=== PATIENT | female | born 1995 | race Caucasian/White ===

== ENCOUNTER 2020-07-30 11:58 | Emergency (ER) | payer SELFPAY ==
[2020-07-30] MEDS ORDERED: CYCLOBENZAPRINE HCL 10 MG TABLET PO ONE (12:40)
[2020-07-30] MEDS ORDERED: KETOROLAC TROMETHAMINE 60 MG/2 ML SDV IM ONE (12:40)
--- NOTE | 2020-07-30 13:21 | RADIOLOGY REPORT (SQ) ---
EXAM DESCRIPTION: SHOULDER RIGHT 2 OR MORE VIEWS IMAGES COMPLETED DATE/TIME: 07/30/2020 1:02 pm REASON FOR STUDY: pain COMPARISON: None. NUMBER OF VIEWS: Three views. TECHNIQUE: Internal rotation, external rotation, and Y view images acquired of the right shoulder. LIMITATIONS: None. FINDINGS: MINERALIZATION: Normal. BONES: No acute fracture. No worrisome bone lesions. No significant osteophytes. GLENOHUMERAL JOINT: No significant findings. ACROMIOCLAVICULAR JOINT: No large osteophytes. SOFT TISSUES: No calcifications. VISUALIZED RIBS, SPINE, AND LUNG: No other significant finding. OTHER: No other significant finding. IMPRESSION: No significant findings. TECHNICAL DOCUMENTATION: JOB ID: [id number] [place]-[id number] 2010 [employer]- All Rights Reserved Reading location - IP/workstation name: [email or web address]
--- NOTE | 2020-07-30 13:44 | ER Document Report ---
HPI - HPI Patient complains to provider of: right shoulder pain upper back pain Time Seen by Provider: 07/30/20 12:33 Pain Level: 5 Context: 24-year-old female with no previous medical problems presents to the emergency room complaining of right upper posterior shoulder pain for the past 2 days. She denies any trauma or injury. States she works at [employer] doing moderate amount of heavy lifting. Has been using an [id number] generic extra strength pain reliever without relief. Last dose around 9 AM. Also complaining of a sore throat that started yesterday. No fevers. Able to tolerate p.o. food and fluids without difficulty. No recent travel. No COVID-19 exposure. She denies any chance of . Associated Symptoms: None Exacerbated by: Movement Relieved by: Remaining still Similar symptoms previously: No Recently seen / treated by doctor: No - ROS Systems Reviewed and Negative: Yes All other systems reviewed and negative - CONSTITUTIONAL Constitutional: DENIES: Fever - EENT EENT: REPORTS: Sore Throat. DENIES: Ear Pain, Congestion - NEURO Neurology: DENIES: Weakness - CARDIOVASCULAR Cardiovascular: DENIES: Chest pain - RESPIRATORY Respiratory: DENIES: Trouble Breathing, Coughing - REPRODUCTIVE Reproductive: DENIES: : - MUSCULOSKELETAL Musculoskeletal: REPORTS: Extremity pain, Back Pain - DERM Skin Color: Normal Skin Problems: None Past Medical History - General Information source: Patient - Social History Smoking Status: Never Smoker Frequency of alcohol use: Occasional Drug Abuse: None Family History: Reviewed & Not Pertinent Psychiatric Medical History: Reports: Hx Attention Deficit Hyperactivity Disorder Vertical Provider Document - CONSTITUTIONAL Agree With Documented VS: Yes Exam Limitations: No Limitations General Appearance: Mild Distress - INFECTION CONTROL TRAVEL OUTSIDE OF THE [place] IN LAST 30 DAYS: No - HEENT HEENT: Atraumatic, Normal ENT Exam, Normocephalic. negative: Pharyngeal Exudate, Pharyngeal Tenderness, Pharyngeal Erythema, Tympanic Membrane Red, Tympanic Membrane Bulging - NECK Neck: Normal Inspection, Supple. negative: Lymphadenopathy-Left, Lymphadenopathy-Right - RESPIRATORY Respiratory: Breath Sounds Normal, No Respiratory Distress, Chest Non-Tender - CARDIOVASCULAR Cardiovascular: Regular Rate, Regular Rhythm, No Murmur - BACK Back: Abnormal Inspection - There is tenderness on palpation to the posterior right lower scapula with some muscle spasms palpated in the thoracic region. There is no obvious deformity noted. Nontender to palpation over the thoracic spine. - MUSCULOSKELETAL/EXTREMETIES Musculoskeletal/Extremeties: Tender - Tender on palpation to the posterior right scapula. No obvious deformity noted. Full range of motion with abduction and adduction. - NEURO Level of Consciousness: Awake, Alert, Appropriate Motor/Sensory: No Motor Deficit, No Sensory Deficit Notes: Positive right radial pulse. Intensive Care Unit Nurse strength equal and adequate bilaterally. Neurovascularly intact. - DERM Integumentary: Warm, Dry, No Rash Course - Re-evaluation Re-evalutation: 07/30/20 13:40 Patient is resting comfortably with decreased pain. No erythema, no exudate, no fever, no signs of strep or acute pharyngitis. Reviewed x-ray results with patient. Counseled on muscle relaxers with Tylenol and or Motrin for pain as discussed. Can use heat 20 minutes 3 times a day. Outpatient follow-up with orthopedics if not improving in 2 to 3 days. On-call physician was provided. Patient was given strict return to the emergency room guidelines. Return for any new or worsening symptoms. All questions were answered. Patient verbalized understanding and agrees with plan of care. 07/30/20 13:48 - Vital Signs Vital signs: Temp Pulse Resp BP Pulse Ox 99.6 F 86 20 112/65 100 07/30/20 12:33 07/30/20 12:05 07/30/20 12:05 07/30/20 12:05 07/30/20 12:05 - Diagnostic Test Radiology reviewed: Reports reviewed Discharge - Discharge Clinical Impression: Upper back strain Qualifiers: Encounter type: initial encounter Qualified Code(s): S29.012A - Strain of muscle and tendon of back wall of thorax, initial encounter Right shoulder pain Qualifiers: Chronicity: acute Qualified Code(s): M25.511 - Pain in right shoulder Condition: Stable Disposition: HOME, SELF-CARE Instructions: Muscle Strain ([facility]), Sore Throat ([facility]), Upper Back Strain ([facility]), Warm Packs ([facility]) Additional Instructions: Take medications as prescribed. Can take Tylenol and or Motrin with the Flexeril for pain. Heat 20 minutes 3 times a day. Can do salt water gargles for your sore throat. Outpatient follow-up with orthopedics if not improving in 2 to 3 days. Return to the emergency room for any new or worsening symptoms. Prescriptions: Cyclobenzaprine HCl [Flexeril 10 mg Tablet] 10 mg PO TIDP PRN #15 tab PRN Reason: Referrals: DELROY HUMMEL DO [ACTIVE STAFF] - Follow up as needed
[2020-07-30 13:59] VITALS: BP 112/64
== END 2020-07-30 13:48 | disposition home or self-care (01) ==
LOC: ER 11:58
DX: S29.012A Strain of muscle and tendon of back wall of thorax, initial encounter (principal); X58.XXXA Exposure to other specified factors, initial encounter; M25.511 Pain in right shoulder; M62.830 Muscle spasm of back; J02.9 Acute pharyngitis, unspecified
CPT/HCPCS: 99284; 96372; 73030; J1885